=== PATIENT | male | born 1980 | race Caucasian/White ===

== ENCOUNTER 2017-02-02 06:37 | Emergency (ER) | payer MEDICAID, OTHER ==
[~2017-02-02] VITALS: Ht 185.4 cm; Wt 163.3 kg
[2017-02-02 06:49] VITALS: BP 138/95
[2017-02-02] MEDS ORDERED: KETOROLAC TROMETH 60MG/2ML VIAL IM ONE (08:30)
== END 2017-02-02 08:28 | disposition home or self-care (01) ==
LOC: ER 06:37
DX: S93.401A Sprain of unspecified ligament of right ankle, initial encounter (principal); M25.571 Pain in right ankle and joints of right foot; W18.2XXA Fall in (into) shower or empty bathtub, initial encounter; Y93.E1 Activity, personal bathing and showering; Y92.89 Other specified places as the place of occurrence of the external cause; Y99.8 Other external cause status
CPT/HCPCS: 73610; 96372; 99284; J1885